=== PATIENT | male | born 1990 | race Caucasian/White ===

== ENCOUNTER 2018-12-17 10:41 | Emergency (ER) | payer MEDICAID ==
--- NOTE | 2018-12-17 10:46 | Emergency Department Record ---
History of Present Illness - General Chief complaint: Flank Pain Stated complaint: FLANK PAIN Time Seen by Provider: 12/17/18 10:42 Source: Patient Mode of Arrival: Ambulatory Limitations: No limitations - History of Present Illness Initial comments: 28 yo male presents from the [facility]. He has had intermittent left flank pain since yesterday afternoon. The pain radiates to the left lower abdomen. He had a feeling of urinary urgency yesterday. He was have the urge then only go a small amount. No fevers. He did have vomiting due to pain yesterday. No rash. No history of the same yesterday. MD Complaint: Other -: Days(s) (1) Location: Left flank Radiation: LLQ Severity: Mild Quality: Aching Consistency: Intermittent Improves with: None Worsens with: None Other Reports: Dysuria - Related Data Previous Rx's Medication Instructions Recorded Ondansetron [Zofran Odt] 4 mg PO NOW #10 tab.rapdis 12/17/18 Allergies Allergy/AdvReac Type Severity Reaction Status Date / Time amoxicillin Allergy rash Unverified 12/17/18 08:17 Penicillins Allergy Unverified 12/17/18 08:17 Review of Systems Constitutional: Denies: Chills, Fever, Malaise, Weakness Eyes: Denies: Eye discharge ENT: Denies: Congestion, Throat pain Respiratory: Denies: Cough Cardiovascular: Denies: Chest pain, Syncope Endocrine: Denies: Fatigue Gastrointestinal: Reports: As per HPI, Abdominal pain, Nausea, Vomiting. Denies : Diarrhea Genitourinary: Reports: Dysuria, Frequency, Urgency Musculoskeletal: Reports: Back pain. Denies: Arthralgia, Joint swelling, Myalgia Skin: Denies: Bruising, Change in color, Rash Neurological: Denies: Confusion, Headache, Weakness Psychiatric: Denies: Anxiety Hematological/Lymphatic: Denies: Easy bleeding, Easy bruising Physical Exam - General General Appearance: Alert, Oriented x3, Cooperative, No acute distress Limitations: No limitations - Head Head exam: Atraumatic, Normal inspection - Eye Eye exam: Normal appearance. negative: Conjunctival injection - ENT ENT exam: Normal exam Ear exam: Normal external inspection Nasal Exam: Normal inspection Mouth exam: Normal external inspection - Neck Neck exam: Normal inspection - Respiratory Respiratory exam: Normal lung sounds bilaterally. negative: Respiratory distress - Cardiovascular Cardiovascular Exam: Regular rate, Normal rhythm, Normal heart sounds - GI/Abdominal GI/Abdominal exam: Soft. negative: Guarding, Rebound, Rigid, Tenderness - Rectal Rectal exam: Deferred - exam: Deferred - Extremities Extremities exam: Normal inspection, Full ROM, Normal capillary refill. negative: Tenderness - Back Back exam: Denies: CVA tenderness (R), CVA tenderness (L), Tenderness - Neurological Neurological exam: negative: Alert, Oriented X3 - Psychiatric Psychiatric exam: Normal affect, Normal mood. negative: Agitated, Anxious - Skin Skin exam: Dry, Intact, Normal color, Warm Course - Reevaluation(s) Reevaluation #1: The US from this AM was reviewed. No acute scrotal or testicular findings. 12/17/18 11:25 12/17/18 11:30 2.5mm left UVJ stone projecting into the bladder lumen. Minimal hydro on the left. 12/17/18 11:37 The patient is currently pain free We discussed the results, home care, reasons to return and follow up He will be given the number to the primary care clinic Disposition Disposition: Discharge Clinical Impression: Renal colic on left side Disposition: Home, Self-Care Condition: (1) Good Instructions: Renal Colic (ED) Additional Instructions: Call your doctor for the next available follow up appointment Return to the ER for a recheck if worse, uncontrolled pain, any fever, or any new concerns or questions Take the prescriptions provided as directed if you have nausea Review this ER visit and the tests performed with your family doctor Prescriptions: Ondansetron [Zofran Odt] 4 mg PO NOW #10 tab.rapdis Forms: Patient Portal Access Time of Disposition: 11:31 Quality - Quality Measures Quality Measures: N/A - Blood Pressure Screening Does Patient Have Any of the Following: No Blood Pressure Classification: Pre-Hypertensive BP Reading Systolic Measurement: 135 Diastolic Measurement: 73 Screening for High Blood Pressure: < Pre-Hypertensive BP, F/U Documented > [ [id number]] Pre-Hypertensive Follow-up Interventions: Referral to alternative/primary care provider.
[2018-12-17 11:30] LABS: URINE APPEARANCE CLEAR; URINE BILIRUBIN NEGATIVE (NEGATIVE); URINE BLOOD LARGE (NEGATIVE); URINE COLOR YELLOW; URINE GLUCOSE (UA) NEGATIVE (NEGATIVE); URINE KETONE NEGATIVE (NEGATIVE); URINE LEUKOCYTE ESTERASE NEGATIVE (NEGATIVE); URINE NITRITE NEGATIVE (NEGATIVE); URINE PROTEIN TRACE (NEGATIVE); URINE UROBILINOGEN 0.2 E.U./dL (0.20 - 1.00)
[2018-12-17 11:39] LABS: URINE BACTERIA 1+; URINE EPITHELIAL CELLS 0 - 2 (FEW); URINE MUCUS HEAVY; URINE RBC 16 - 25 (NONE SEEN); URINE WBC 0 - 2 (0-2/hpf)
--- NOTE | 2018-12-20 04:31 | CT SCAN REPORT ---
DATE: 12/17/2018 at 10:58 a.m. EXAM: CT OF THE ABDOMEN AND PELVIS WITHOUT CONTRAST. HISTORY: Left-sided flank pain. TECHNIQUE: Thin-collimation helical CT examination of the abdomen and pelvis was performed without oral or intravenous contrast administration for the express purpose of evaluating the renal collecting systems for obstructing calculi. Lack of oral and intravenous contrast utilization limits evaluation of the bowel and solid viscera, respectively. Additional CT imaging of the lower pelvis was performed with the patient prone. COMPARISON: Same-day scrotal ultrasound. FINDINGS: The lung bases are clear. No pleural or pericardial effusion. There is questionable mild bilateral gynecomastia. The heart is not enlarged. There is mild, diffuse decreased density of the liver relative to the spleen with a small area of relative sparing adjacent to the gallbladder fossa. This low density is consistent with steatosis. No suspicious focal hepatic lesion is , however, identified. The pancreas, spleen, and adrenal glands are normal in appearance. The gallbladder is unremarkable, and no biliary ductal dilatation is seen. The kidneys are normal in size and position and are smoothly marginated. There is a tiny, 1.0 to 2.0 mm nonobstructing calculus in the mid right kidney as seen on series 3, image 74. No other nephrolithiasis nor renal mass. The left renal collecting system is slightly more pronounced than the right though is not grossly dilated. On initial images there is a small calcification in the region of the left vesicoureteral junction projecting into the urinary bladder lumen. This measures 2.5 mm. It does not change position with the patient prone. The urinary bladder is otherwise without focal abnormality, though evaluation is limited by lack of distension. No pelvic mass, lymph adenopathy, or free pelvic fluid. No gross bowel dilatation nor bowel wall thickening. The appendix is visualized in a retrocecal location and is normal in appearance. No intraabdominal nor retroperitoneal lymphadenopathy. No lytic or blastic bone lesion. IMPRESSION: 1. A 2.5 MM CALCULUS WITHIN THE LEFT VESICOURETERAL JUNCTION PROJECTING INTO THE URINARY BLADDER LUMEN. THIS IS NOT MOBILE. THE LEFT RENAL COLLECTING SYSTEM IS SLIGHTLY MORE PRONOUNCED THAN THE RIGHT THOUGH IS NOT GROSSLY DILATED. 2. HEPATIC STEATOSIS. 3. TINY, NONOBSTRUCTING CALCULUS IN THE RIGHT MID KIDNEY. 4. APPARENT MILD BILATERAL GYNECOMASTIA. JOB NUMBER: [id number] [facility]
== END 2018-12-17 11:45 | disposition home or self-care (01) ==
LOC: ER 10:41
DX: N13.2 Hydronephrosis with renal and ureteral calculous obstruction (principal); R30.0 Dysuria; F17.220 Nicotine dependence, chewing tobacco, uncomplicated; N50.82 Scrotal pain
CPT/HCPCS: 74176; 76870; 81001; 99283; 99284